=== PATIENT | male | born 1985 | race African-American/Black ===

== ENCOUNTER 2017-02-11 23:12 | Emergency (ER) | payer SELFPAY ==
[~2017-02-11] VITALS: Ht 170.2 cm; Wt 78.0 kg
[2017-02-12] MEDS ORDERED: SODIUM CHLORIDE 0.9% 1,000 ML IV ONE (00:57)
[2017-02-12] MEDS ORDERED: ONDANSETRON HCL 4MG/2ML VIAL IV STA (00:57)
[2017-02-12] MEDS ORDERED: MORPHINE SULFATE 4 MG/ML CPJ (NOT FOR IM USE) IV STA (00:57)
[2017-02-12 01:25] LABS: BASOPHILS % 0.3 % (0.0-2.0); EOSINOPHILS % 2.4 % (0.0-5.0); HEMOGLOBIN. 12.5 g/dL (14.0-18.0); LYMPHOCYTES % 53.6 % (20.0-50.0); MEAN CORPUSCULAR VOLUME 85.6 fL (80.0-94.0); MEAN PLATELET VOLUME 9.6 fl (7.4-10.4); MONOCYTES % 7.2 % (2.0-8.0); NEUTROPHILS % 36.5 % (40.0-76.0); PLATELET 130 x1000/uL (130-400); RED BLOOD CELL COUNT 4.32 mill/uL (4.7-6.1); RED CELL DISTRIBUTION WIDTH 13.5 % (11.6-14.6)
[2017-02-12 01:30] LABS: INR 1.1; PROTHROMBIN TIME 11.1 sec
[2017-02-12 01:39] LABS: CARBON DIOXIDE 26 mEq/L (21-32); CHLORIDE 110 mEq/L (98-107); TROPONIN I < 0.02 ng/mL (0.00-0.04)
[2017-02-12 03:47] VITALS: BP 128/71
== END 2017-02-12 05:28 | disposition home or self-care (01) ==
LOC: ER 02-12 05:23
DX: R07.89 Other chest pain (principal); R10.9 Unspecified abdominal pain; R11.10 Vomiting, unspecified; M54.9 Dorsalgia, unspecified; Z87.19 Personal history of other diseases of the digestive system; F10.21 Alcohol dependence, in remission; F12.90 Cannabis use, unspecified, uncomplicated; Z88.0 Allergy status to penicillin; Z88.1 Allergy status to other antibiotic agents; R94.31 Abnormal electrocardiogram [ECG] [EKG]
CPT/HCPCS: 36415; 71010; 80053; 83690; 84484; 85025; 85610; 85730; 93005; 96361; 96374; 96375; 99285; J2270; J2405; J7030; Z7610

== ENCOUNTER 2017-04-17 02:27 | Emergency (ER) | payer SELFPAY ==
[~2017-04-17] VITALS: Ht 172.7 cm; Wt 77.0 kg
[2017-04-17] MEDS ORDERED: NAPROXEN 375MG TABLET PO ONE (04:00)
[2017-04-17 05:19] VITALS: BP 122/88
== END 2017-04-17 05:22 | disposition home or self-care (01) ==
LOC: ER 02:27
DX: R07.89 Other chest pain (principal); Z88.0 Allergy status to penicillin
CPT/HCPCS: 93005; 99283; Z7610

== ENCOUNTER 2017-10-04 01:24 | Emergency (ER) | payer SELFPAY ==
[~2017-10-04] VITALS: Ht 172.7 cm; Wt 69.0 kg
[2017-10-04] MEDS ORDERED: ACETAMINOPHEN 500MG TABLET PO ONE (02:00)
[2017-10-04] MEDS ORDERED: IBUPROFEN 400MG TABLET PO ONE (02:00)
[2017-10-04] MEDS ORDERED: MORPHINE SULFATE 4 MG/ML CPJ (NOT FOR IM USE) IV NR (03:45)
[2017-10-04] MEDS ORDERED: ONDANSETRON HCL 4MG/2ML VIAL IM NR (03:45)
[2017-10-04] MEDS ORDERED: HYDROCODONE/ACETAMINOPHEN 5/325MG TABLET PO ONE (06:30)
[2017-10-04 06:51] VITALS: BP 122/81
== END 2017-10-04 06:49 | disposition home or self-care (01) ==
LOC: ER 01:24
DX: M25.531 Pain in right wrist (principal); M79.631 Pain in right forearm; Z88.0 Allergy status to penicillin
CPT/HCPCS: 29125; 73090; 73110; 96372; 96374; 99284; J2270; J2405; Z7610; A4565